=== PATIENT | male | born 1965 | race Hispanic/Latino ===

== ENCOUNTER → 2018-08-22 | Outpatient (CLI) | payer OTHER ==
[~2018-08-22] MED LIST: IOPAMIDOL 370 MG/ML 200 ML INFUS..BTL INJ ONE; SODIUM CHLORIDE 0.9% 250ML 250 ML ONE
[2018-08-22 08:20] LABS: BLOOD UREA NITROGEN 12 mg/dL (7-26); BUN/CREATININE RATIO 15 (6-25); CREATININE, SERUM 0.79 mg/dL (0.72-1.25); EST GLOMERULAR FILTRATION RATE > 60 ML/MIN (60-)
--- NOTE | 2018-08-22 10:14 | Diagnostic Imaging Report ---
EXAM: CT abdomen and pelvis without and with contrast INDICATION: Hematuria COMPARISON: None. TECHNIQUE: Abdomen and pelvis were scanned in prone position without and with contrast. Delayed phase imaging obtained. Coronal and sagittal reformations were obtained. Hematuria protocol was performed. Scan was performed when during portal venous phase. IV CONTRAST: 150 mL of Isovue 370 ORAL CONTRAST: Water RADIATION DOSE: Total DLP: 1630 mGy*cm COMPLICATIONS: None FINDINGS: LINES and TUBES: None. LOWER THORAX: Unremarkable Patchy dependent atelectasis. HEPATOBILIARY: Subcentimeter right hepatic lobe hypodensities too small to characterize, but likely represents a cyst. No biliary ductal dilation. Status post cholecystectomy. There is a 2.3 cm right hepatic cystic lesion with peripheral calcifications, which may be sequela of prior infectious or inflammatory etiology. No surrounding stranding. SPLEEN: No splenomegaly. PANCREAS: No focal masses or ductal dilatation. ADRENALS: No adrenal nodules KIDNEYS/URETERS: Kidneys enhance symmetrically. No hydronephrosis. No cystic or solid mass lesions. The left ureter is opacified and the majority of the right ureter is opacified and demonstrates no specific evidence of urothelial lesion. The distal right ureter is not well opacified. No evidence of mass or hydronephrosis. Mild bilateral nonspecific perirenal stranding. GI TRACT: No abnormal distention, wall thickening, or evidence of bowel obstruction. Appendix is unremarkable. PELVIS: The bladder is opacified on delayed images and demonstrates no evidence of urothelial lesion. LYMPH NODES: No lymphadenopathy. VESSELS: Study is not optimized for evaluation of arterial structures. There is aortic bilateral iliac bypass, which appears grossly patent. 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 Patent external iliac and common femoral arteries bilaterally. PERITONEUM / RETROPERITONEUM: No free air or fluid. BONES AND SOFT TISSUES: No acute bony findings or suspicious lytic or blastic lesions. Postsurgical changes involving the anterior right-midline abdomen. There is a fat-containing incisional hernia with mild stranding. IMPRESSION: No evidence of renal mass, stone, or urothelial lesion. Right distal ureter is not well evaluated due to lack of contrast opacification on delayed images. Aortoiliac bypass appears grossly patent, although not optimally evaluated on this study. Signed by: Dr. Gabriela Martinez MD on 08/22/2018 10:10 AM
== END ==
LOC: CT 07:10
PROVIDERS: ATTEND Urology
DX: R31.9 Hematuria, unspecified (principal)
CPT/HCPCS: 36415; 74178; 82565; 84520; J7050; Q9967